=== PATIENT | male | born 1985 | race Caucasian/White ===

== ENCOUNTER 2018-02-23 17:55 | Inpatient (IN) | payer OTHER ==
[~2018-02-23] VITALS: Ht 177.8 cm; Wt 61.2 kg
--- NOTE | 2018-02-23 21:00 | NUR ---
INTAKE ASSESSMENT BP:139/86, HR: 98, RR:16, SpO2:98%, T:98.0 Pt is stable and able to be admitted on the unit. Unit protocols regarding medications and vital signs every 4 hours were explained. Pt verbalized understanding. Will continue admission upon arrival on the unit.
[2018-02-23] MEDS ORDERED: BUPRENORPHINE HCL 2 MG TAB.SUBL SL PRN (21:15)
[2018-02-23] MEDS ORDERED: METHOCARBAMOL 750 MG TABLET PO PRN (21:15)
[2018-02-23] MEDS ORDERED: ONDANSETRON 4 MG/2 ML VIAL IM PRN (21:15)
[2018-02-23] MEDS ORDERED: ACETAMINOPHEN 325 MG TABLET PO PRN (21:15)
[2018-02-23] MEDS ORDERED: MIRALAX 17 GM POWD.PACK PO PRN (21:15)
[2018-02-23] MEDS: MULTIVITAMINS,THERAPEUTIC TABLET PO SCH (21:15)
[2018-02-23] MEDS ORDERED: LOPERAMIDE HCL 2 MG CAPSULE PO PRN ×2 (21:15)
[2018-02-23] MEDS ORDERED: LORAZEPAM 1 MG TABLET PO PRN (21:15)
[2018-02-23] MEDS ORDERED: IBUPROFEN 600 MG TABLET PO PRN (21:15)
[2018-02-23] MEDS ORDERED: MAGNESIUM HYDROXIDE 30 ML LIQUID UDC PO PRN (21:15)
[2018-02-23] MEDS ORDERED: MAG HYDROX/AL HYDROX/SIMETH 30 ML LIQUID UDC PO PRN (21:15)
[2018-02-23] MEDS ORDERED: ONDANSETRON ODT 4 MG TAB.RAPDIS SL PRN (21:15)
[2018-02-23 21:37] LABS: BASOPHILS # (AUTO) 0.1 K/uL (0.0-8.0); BASOPHILS % (AUTO) 0.9 % (0.0-2.0); EOSINOPHILS # (AUTO) 0.1 K/uL (0.0-0.7); EOSINOPHILS % (AUTO) 0.9 % (0.0-7.0); HEMOGLOBIN 13.4 g/dL (12.5-16.3); LYMPHOCYTES # (AUTO) 1.9 K/uL (20.0-40.0); LYMPHOCYTES % (AUTO) 32.3 % (20.5-51.5); MEAN CORPUSCULAR HEMOGLOBIN 31.4 uug (23.8-33.4); MEAN CORPUSCULAR HGB CONC 34 g/dL (32.5-36.3); MEAN CORPUSCULAR VOLUME 91.8 fL (73.0-96.2); MONOCYTES # (AUTO) 0.4 K/uL (2.0-10.0); NEUTROPHILS # (AUTO) 3.5 K/uL (1.8-8.9); NEUTROPHILS % (AUTO) 58.9 % (38.5-71.5); PLATELET COUNT (AUTO) 166 K/uL (152-348); RED BLOOD CELL COUNT(AUTO) 4.25 MIL/uL (4.06-5.63); WHITE BLOOD COUNT (AUTO) 5.9 K/uL (3.6-10.2)
--- NOTE | 2018-02-23 21:45 | NUR ---
ADMISSION NOTE Pt arrived ambulatory accompanied by a EPIC ANALYST at 2106. Pt is a 32 year old male admitted on 02/23/18 for medically supervised withdrawal from Opiates (Heroin). Pt is full code with allergy to shrimp. He denies any PMHx. Pt is alert and oriented x4. Vitals signs are: BP: 139/86, HR: 98, RR:16, SpO2:98%, T:98.0. Speech is clear. Pt is compliant with admission process. He is a poor historian and continuously expresses the desire to sleep. COWS assessment deferred d/t pt currently denies withdrawal symptoms and complains of feeling tired and sleepy from using. He reports his last use of Heroin was on 02/23/18 at 1500. He appears to be fatigued, with dirty fingernails, and poor eye contact. He is noted to be worried and guarded with flat affect. He denies a history of physical, sexual or verbal abuse. He denies having a PCP or psychiatrist. He did not bring home medications and denies taking any medications. He denies any history of seizures, withdrawal induced delirium, withdrawal- induced cardiac complications, overdose and 5150s. Pt reports he started using Heroin 5 years ago. He states this is my third time trying to get sober. I relapsed and Jessica been using for 3 months He reports his most recent sobriety was from May 2017-November 2017. He reports going to treatment 9 months ago but is unable to recall where. When asked why he started using again pt stated "everyday stress." He reports he wants to get sober because, "my said shell leave me if I dont get clean." He states his triggers for relapse are "stress" Pt reports that he has not attempted to get sober on his own. Pt reports that his support system is his . He reports that his plan after detox is to go to treatment. He denies any legal consequences related to his substance use. He reports he is unemployed and lives with his in the [facility]. He describes his current use as: 1. Heroin (smoke) 1 gram daily x3 months. Last use: 1 gram on 02/23/18 at 1500 2. Methamphetamine (smoke) 0.25 gram daily x3 months. Last use: 0.25 gram on 02/23/18 at 1500. Pt describes his typical withdrawal symptoms are: body aches, anxiety, chills, sweats, restlessness and agitation. Upon assessment, heart rate is regular. He denies chest pain or SOB. PERRLA, breathing is even and unlabored, lung sounds clear. Abdomen is soft and non-distended. Bowel sounds present in all quadrants, last BM 02/22/18. Pt reports that BM is regular. Pt's skin is warm, dry and intact. Dr. Rojas aware of pts admission with PRN medications ordered. Pt oriented to room and unit. Safety measures in place. Will continue to monitor.
[2018-02-23 21:49] LABS: ALANINE AMINOTRANSFERASE 28 U/L (16-63); ALKALINE PHOSPHATASE 59 U/L (50-136); ASPARTATE AMINOTRANSFERASE 21 U/L (15-37); BILIRUBIN,TOTAL 0.4 mg/dL (0.2-1.0); CARBON DIOXIDE 28 mmol/L (21-32); CHLORIDE 104 mmol/L (98-107); GLUCOSE 102 mg/dL (74-106); MAGNESIUM 2.2 mg/dL (1.8-2.4); POTASSIUM 3.8 mmol/L (3.5-5.1); TOTAL PROTEIN, SERUM 6.9 g/dL (6.4-8.2); UREA NITROGEN, BLOOD 30 mg/dL (7-18)
[2018-02-23 21:51] LABS: *AMPHETAMINE, URINE POSITIVE (NEGATIVE); *BARBITURATE, URINE NEGATIVE (NEGATIVE); *CANNABINOID, URINE NEGATIVE (NEGATIVE); *COCCAINE, URINE NEGATIVE (NEGATIVE); *OPIATE, URINE POSITIVE (NEGATIVE); *PHENCYCLIDINE SCREEN,URINE NEGATIVE (NEGATIVE)
[2018-02-23 21:53] LABS: ETHANOL < 3 MG/DL (0-0)
[2018-02-23 21:57] LABS: THYROID STIMULATING HORMONE 0.529 mIU/mL (0.358-3.740)
[2018-02-24] VITALS: BP 113/62
--- NOTE | 2018-02-24 04:00 | NUR ---
0400 VITALS REFUSED 0400 vitals refused. Breathing is even and unlabored, safety measures in place. Will continue to monitor.
--- NOTE | 2018-02-24 07:15 | NUR ---
END OF SHIFT Pt is a 32 year old male admitted on 02/23/18 for Opiate withdrawal. Pt remains alert and oriented x4. He denied any withdrawal symptoms. COWS assessment was deferred d/t no complaints of withdrawal symptoms. He is not currently on a taper but has PRN medications available. He did not receive or request PRN medications. He slept a total of 8 hrs, Intake: 1,200mL , Void: x1, BM:0. Breathing is even and unlabored, safety measures in place. Endorsed to AM shift.
--- NOTE | 2018-02-24 07:30 | NUR ---
Start of Shift Notes: Received report from night nurse. Patient is a 32 year old male admitted for opiate withdrawal who was placed on PRNs at this time to manage his withdrawal symptoms. Per night report, patient deferred his last COWS and CIWA due to sleep. Did not receive any PRNs and was able to obtain 8 hours of sleep in total. Patient is seen in his room at this time. He appears disheveled with poor regards to hygiene, dirty fingernails and hands were noted. He is noted with flat affect, easily distracted with poor eye contact noted. He complains of chills, hot flashes, nasal stuffiness, gross tremors, anxiety and agitation, pupils were moderately dilated. Educated patient on his current plan of care for the day and his medication regimen. Encouraged oral fluid intake and encouraged group participation to learn new skills to prevent relapse.
[2018-02-24 08:00] VITALS: BP 129/86
[2018-02-24] MEDS ORDERED: TUBERCULIN,PURIF.PROT.DERIV. 5 TU/0.1 ML TEST ID ONE (09:00)
[2018-02-24] MEDS: MULTIVITAMINS,THERAPEUTIC TABLET PO SCH (09:11)
--- NOTE | 2018-02-24 09:11 | NUR ---
Subutex 4 mg SL given: COWS 12, patient noted with complains of chills, hot flashes, moderate pupil dilation, nasal stuffiness, stomach cramps, gross tremors, bone/joint aches, restlessness, anxiety and agitation. Medicated patient with Subutex 4 mg SL as ordered. Will monitor for effectiveness.
--- NOTE | 2018-02-24 09:41 | NUR ---
Re-assessment: Subutex COWS 10, patient continues to present with s/s of withdrawal m/b restlessness, anxiety, agitation, goosebumps and bone/joint aches. However, he verbalizes that PRN Subutex was effective in mildly reducing his s/s of withdrawal.
[2018-02-24] MEDS ORDERED: 5 DAY TAPER BUPRENORPHINE -SERENITY PROTOCOL SL PRN (11:45)
[2018-02-24 12:00] VITALS: BP 110/68
[2018-02-24] MEDS: BUPRENORPHINE HCL 2 MG TAB.SUBL SL SCH ×3 (12:37→20:25)
[2018-02-24 16:00] VITALS: BP 113/78
--- NOTE | 2018-02-24 19:03 | NUR ---
End of Shift Notes: Patient initiated his 5-day Subutex taper today at 1300. No adverse reactions noted. VS monitored closely. No significant abnormalities noted. Withdrawal symptoms were closely monitored. Initial COWS 12, patient presented with chills, hot flashes, moderately dilated pupils, nasal stuffiness, stomach cramps, gross tremors, anxiety, agitation, fatigue, malaise and generalized discomfort. Medicated patient with Subutex 4 mg SL at 0911 with help. Last COWS 10. Patient verbalizes that Subutex has been effective in reducing his withdrawal symptoms. Appetite fair. Unable to participate in group and activities due to his withdrawal symptoms. All needs met and attended. Will continue to monitor closely.
--- NOTE | 2018-02-24 19:43 | NUR ---
START OF SHIFT NOTE Rcvd report from outgoing nurse. Pt is a 32 y/o male A/O to person, place, time, and purpose. Pt was admitted for medically supervised withdrawal from Heroin. Pt is on day 1 of a 5 day Subutex taper. Pt has been presenting w/ body aches, sweats, chills, hot flashes, blunt affect, depressed and withdrawn mood, and guarded demeanor. Pt also has an unkempt and disheveled appearance. Pt rcvd PRN Subutex and was noted effective by outgoing nurse. Last COWS 10 @ 1600. Call light is within reach. Pt will continue to be monitored and needs met.
[2018-02-24 20:00] VITALS: BP 114/70
[2018-02-24] MEDS: CLONIDINE HCL 0.1 MG TABLET PO PRN (20:25)
[2018-02-24] MEDS: diphenhydrAMINE 50 MG CAPSULE PO PRN (20:25)
--- NOTE | 2018-02-24 20:25 | NUR ---
PRN BENADRYL, CLONIDINE, AND ROBAXIN ADMINISTRATION Benadryl 50mg for sleep, Clonidine 0.1mg for anxiety, and Robaxin 750mg for body aches and generalized pain were given. Will reassess pt in 1 hr.
--- NOTE | 2018-02-24 21:25 | NUR ---
PRN BENADRYL, CLONIDINE, AND ROBAXIN REASSESSMENT Pt is in bed w/ his eyes closed. Pt's respriations are unlabored and even.
--- NOTE | 2018-02-25 | NUR ---
COWS DEFERRED Pt is in bed w/ his eyes closed. Pt's respirations are unlabored and even. Will continue to monitor pt.
--- NOTE | 2018-02-25 04:00 | NUR ---
COWS DEFERRED AND V/S REFUSED Pt is in bed w/ his eyes closed. Pt's respirations are unlabored and even. Pt is unarousable to name. Will continue to be monitored.
[2018-02-25] MEDS: HYDROXYZINE PAMOATE 25 MG CAPSULE PO PRN ×2 (04:58→21:42)
--- NOTE | 2018-02-25 04:58 | NUR ---
PRN VISTARIL ADMINISTRATION Vistaril 50mg given for anxiety. Will reassess pt in 1hr.
--- NOTE | 2018-02-25 05:58 | NUR ---
PRN VISTARIL REASSESSMENT Pt is in bed w/ his eyes closed. Pt's respirations are unlabored and even.
--- NOTE | 2018-02-25 07:21 | NUR ---
END OF SHIFT NOTE Endorsed pt to oncoming nurse. Pt is a 32 y/o male A/O to person, place, time, and purpose. Pt was admitted for medically supervised withdrawal from Heroin. Pt completed day 1 of a 5 day Subutex taper. Pt continued presenting w/ body aches, sweats, chills, hot flashes, blunt affect, depressed and withdrawn mood, and guarded demeanor. Pt also has an unkempt and disheveled appearance. Pt denies any S/I or H/I. PRN Benadryl, Clonidine, Robaxin, and Vistaril were given and noted effective. Pts fluid intake was 1000ml and he slept for 11hrs. Last COWS 10 @ 2000. Call light is within reach
--- NOTE | 2018-02-25 07:25 | NUR ---
Start Of Shift Report received from night time nanny nurse. Pt is a 32 y/o male A/OX4 admitted for medically supervised withdrawal from Heroin. Per night time nanny nurse pt's last COWS was a 10. Pt is continues his 5 day Subutex taper. Upon start of shift pt noted laying in his bed with his eyes open resting, breathing even and unlabored. When greeted pt stated " Im feeling a bit better but Im still having chills and anxiety when I wake up". Pt's room appears messy with his clothes on his bed and table, socks on the floor and food wraps in bed. Pt appears anxious, sweaty and flushed. During assessment, pt is AOx4. Lung sounds clear bilaterally. Radial pulse is regular and non-bounding. Abdomen soft and non-tender. Pt's skin is warm and intact. pt denies any pain at the moment. Encouraged pt to drink plenty of fluids to keep hydrated and help the detox process as well as compensate for all the water lost through sweat. Pt slept a total of 11 hours last night. Pt received PRN Clonidine, Benadryl Robaxin Vistaril last night, per night time nanny medication was effective. Bed in lowest position. Side rails up x2. Call light functioning and within reach. All needs attended and met. Will continue to monitor.
[2018-02-25 08:00] VITALS: BP 124/75
--- NOTE | 2018-02-25 08:00 | NUR ---
COWS 11 Pt has diaphoresis, anxiety restless legs, yawning agitation, Emotional volatility and restlessness. Pt complains of chills runny nose and fatigue. Pt encouraged to drink more fluids to help with detox process. Will continue to monitor, support and encourage according to plan of care.
[2018-02-25 08:06] LABS: HEPATITIS B SURFACE AG Negative (Negative)
[2018-02-25] MEDS: MULTIVITAMINS,THERAPEUTIC TABLET PO SCH (08:52)
[2018-02-25] MEDS: BUPRENORPHINE HCL 2 MG TAB.SUBL SL SCH ×3 (08:53→21:42)
--- NOTE | 2018-02-25 09:47 | NUR ---
Therapist prompted client to attend group therapy sessions daily.
[2018-02-25 12:00] VITALS: BP 120/80
--- NOTE | 2018-02-25 12:00 | NUR ---
COWS 10 Pt has diaphoresis, anxiety restless legs agitation,and restlessness. Pt complains of chills and fatigue. Pt encouraged to drink more fluids to help with detox process. Will continue to monitor, support and encourage according to plan of care.
[2018-02-25 16:00] VITALS: BP 125/85
[2018-02-25] MEDS: CLONIDINE HCL 0.1 MG TABLET PO PRN (16:15)
--- NOTE | 2018-02-25 19:02 | NUR ---
END OF SHIFT Report given to seed cutter nurse, Plan of care followed, Vital signs monitored closely Q4H. Withdrawals symptoms were closely monitored, medications given as schedule. Initial COWS 11. Pt encouraged adequate PO fluid intake as tolerated to compensate for all the water lost in sweat as well as with helping speed up the detox process. Pt presented with diaphoresis, anxiety restless legs, yawning agitation, emotional volatility and restlessness during the day. Pt received all of the scheduled medications. Last COWS 12. Pt reported that Subutex has been working well at controlling the withdrawal symptoms. Pt ate all of the meals. Pt attended all the groups and activities to learn new coping skills to prevent relapse. Pt denies any SI/HI. Pt is very withdrawn and to himself. Educated pt on s/s of withdrawals and health risks and consequences with using. Pt received PRN Clonidine for Anxiety, which was effective. All safety measures in place, bed in lowest locked position, call light within reach. All needs met and attended.
--- NOTE | 2018-02-25 19:15 | NUR ---
Start of Shift Note: Report received from day shift nurse. Patient is a 32 y.o male admitted on 02/23/18 for medically supervised withdrawal from Heroin & Meth. Patient received alert & oriented x3. He is noted with flat affect, anxious and irritable mood. He appear disheveled, unshaved and noted with dirty fingernails. Room has scattered clothes and empty food and bottles all over table. He shows s/s of flushed face, restlessness, enlarge pupils, stuffy nose, yawning, chills, sweating, & fine tremors. He is on a day 2 of his 5-day Subutex taper and tolerating well. Last CIWA is 12. Pt received PRN Clonidine and was effective per report. Continue to closely monitor for for s/s of withdrawal. Encourage pt to increase fluid intake. Safety measures in place. Educated pt current plan of care and medication regimen. Pt verbalized understanding. Will continue to monitor patient.
[2018-02-25 20:00] VITALS: BP 97/63
--- NOTE | 2018-02-25 21:42 | NUR ---
PRN Vistaril Patient complained of anxiety. Pt in bed and appears restless. Non-pharmacological intervention provided but ineffective. PRN Vistaril administered as ordered. Will continue to monitor patient.
--- NOTE | 2018-02-25 22:42 | NUR ---
PRN Reassessment Patient in bed with eyes close. No restlessness noted at this time. Safety measures in place. Will continue to closely monitor patient for any s/s of withdrawal.
--- NOTE | 2018-02-26 | NUR ---
Vitals and COWS deferred Pt asleep in bed with no acute distress noted. Pt refused vitals at this time. Breathing even & unlabored. COWS deferred at this time and will reassess when pt is awake. Safety measures in place. Will continue to monitor patient.
--- NOTE | 2018-02-26 04:00 | NUR ---
Vitals and COWS deferred Pt refused vitals at this time. Pt still asleep in bed with no acute distress noted. COWS deferred at this time and will reassess when pt is awake. Safety measures in place. Will continue to monitor patient.
--- NOTE | 2018-02-26 07:09 | NUR ---
End of Shift Note: Patient still asleep at this time. No acute distress noted during shift. Continues to be on a Subutex taper and tolerating well. Pt complained of anxiety and was given PRN Vistaril and was effective. Pt stayed most of his time in his room. Encourage pt to increase activity and to socialize with peers. Last CIWA is 11. Pt remained compliant with medication and treatment. Vitals noted WNL. He was able to sleep for 7 hours. Fluid intake 1092ml, Voided 1x with no BM noted. Safety measures in place. Will endorse pt to AM nurse.
[2018-02-26 08:00] VITALS: BP 140/83
--- NOTE | 2018-02-26 08:25 | NUR ---
START OF SHIFT: Received Pt A/O X 4.He is disheveled. He presents with guarded affect and anxious mood. He reports restlessness, body aches, anxiety and intermittent sweats. He states he slept alright last night and his appetite is better. COWS 9. Subutex taper in progress to manage s/s of w/d. Encouraged increased fluids to assist in facilitating detox process. Will continue to monitor and manage s/s of w/d.
[2018-02-26] MEDS: MULTIVITAMINS,THERAPEUTIC TABLET PO SCH (08:26)
[2018-02-26] MEDS ORDERED: BUPRENORPHINE HCL 2 MG TAB.SUBL SL SCH (09:00)
[2018-02-26 12:00] VITALS: BP 113/77
--- NOTE | 2018-02-26 12:02 | NUR ---
Therapist prompted client to attend group therapy sessions.
--- NOTE | 2018-02-26 12:05 | NUR ---
COWS=8 he reports body aches,anxiety,restlessness and intermittent sweats.
[2018-02-26] MEDS: BUPRENORPHINE HCL 2 MG TAB.SUBL SL SCH ×2 (14:43→21:13)
[2018-02-26 16:00] VITALS: BP 108/72
--- NOTE | 2018-02-26 18:41 | NUR ---
END OF SHIFT: Pt continues on Subutex taper to manage s/s of w/d which include anxiety,body aches, intermittent sweats and restlessness. Last COWS 7.He states the detox meds are effective. He was compliant with increased fluids and group attendance. Will pass shift report to oncoming night nurse.
--- NOTE | 2018-02-26 19:30 | NUR ---
START OF SHIFT Received patient awake, alert, and oriented lying in bed watching TV. Patient is a 32 year old male admitted for medically supervised detox from opiates with no secondary diagnoses. Per endorsement patient is on the 2nd day of a 5 day Subutex taper started on 02/24/18. Patient was noted to be cooperative and compliant with treatment plan throughout the previous shift and no negative symptoms were reported by the patient and no PRNs were given. Upon assessment, patient reports having generalized body aches all throughout his body at a pain level of 3 out of 10 and declines the use of PRN meds. Last COWS score is 7. HOB and bilateral side rails raised for safety. All safety measures are in place. Bed is in a low position with wheels locked. Call light is functional and within reach. Will continue to monitor.
[2018-02-26 20:00] VITALS: BP 121/70
--- NOTE | 2018-02-27 | NUR ---
VITAL SIGNS REFUSED Patient noted lying in bed with eyes closed and even, unlabored respirations. Vital signs refused. HOB flat and bilateral side rails raised. Call light is functional and within reach. All safety measures in place. Will continue to monitor.
--- NOTE | 2018-02-27 07:30 | NUR ---
START OF SHIFT Pt 32 y/o male admitted for opiate withdrawal. Pt received in room on bed with eyes closed resting but arousable to name. Pt alert and oriented to name, place, and time. Perrla. Skin warm and moist to touch. Respirations even and unlabored. Appears disheveled. Clothes scattered throughout the room. Encouraged to maintain hygiene. Anxious and restless. Pressured speech. Complaints of generalized body aches and discomfort. Intermittent perspirations/ chills. It was reported that pt slept or 6 hours last night. Pt is on a 5 day subutex taper and is on day 4. Bed on lowest position with side rails x2 up for safety. Call light within reach.
--- NOTE | 2018-02-27 07:30 | NUR ---
END OF SHIFT Patient is noted lying in bed with eyes closed and even, unlabored respirations. Patient is a 32 year old male admitted for medically supervised detox from opiates with no secondary diagnoses. During the shift, the patient did not report any negative symptoms and no PRNs were given. Patient remained in his room for most of the shift and slept. Patient was encouraged to increase fluid intake and activity levels. Last COWS score is 7. He slept for about 6 hours during the night. HOB flat and bilateral side rails raised. All safety measures in place. Bed is in a low position with wheels locked. Call light is functional and within reach. Endorsed to oncoming AM nurse.
[2018-02-27 08:00] VITALS: BP 115/75
[2018-02-27] MEDS: BUPRENORPHINE HCL 2 MG TAB.SUBL SL SCH ×3 (09:05→20:55)
[2018-02-27] MEDS: MULTIVITAMINS,THERAPEUTIC TABLET PO SCH (09:05)
[2018-02-27 12:00] VITALS: BP 124/78
[2018-02-27 16:00] VITALS: BP 130/80
--- NOTE | 2018-02-27 19:23 | NUR ---
END OF SHIFT Pt 32 y/o male admitted for opiate withdrawal. Pt alert and oriented to name, place, and time. Perrla. Skin warm and moist to touch. Respirations even and unlabored. Appears disheveled. Empty drink bottles scattered throughout the room. Encouraged to maintain hygiene. Anxious and restless. Pressured speech. Fidgety. Irritable. Complaints of generalized body aches. Complaints of generalized discomfort. Pt selective with group activity today. Pt is on a 5 day subutex taper and is on day 4. Bed on lowest position with side rails x2 up for safety. Call light within reach.
--- NOTE | 2018-02-27 19:30 | NUR ---
START OF SHIFT Received patient awake, alert, and oriented x4 lying in bed watching television. Patient is a 32 year old male admitted for medically supervised detox from opiates with no secondary diagnoses. Per endorsement, patient made no requests during the day and was cooperative and compliant with all treatments and therapies. No PRNs were given. Upon assessment, patient requested to have a sleep aid with his night meds. No other issues noted or reported. Last COWS score is 10. HOB is flat and bilateral side rails raised. Bed is in a low position with wheels locked. Call light is functional and within reach. All safety measures in place. Will continue to monitor.
[2018-02-27 20:00] VITALS: BP 107/73
[2018-02-27] MEDS: diphenhydrAMINE 50 MG CAPSULE PO PRN (20:55)
--- NOTE | 2018-02-27 20:55 | NUR ---
PRN BENADRYL ADMINISTRATION Patient reported having difficulty sleeping and requested a sleep aid. PRN Benadryl 50 mg given per MD orders and patient request. Will continue to monitor and reassess for effectiveness.
--- NOTE | 2018-02-27 21:55 | NUR ---
PRN BENADRYL REASSESSMENT Patient is noted lying in bed with eyes closed and even unlabored respirations. PRN Benadryl noted to be effective. HOB flat and bilateral side rails raised for safety. Will continue to monitor.
--- NOTE | 2018-02-28 | NUR ---
VITAL SIGNS REFUSED Patient is noted lying in bed with eyes closed and even, unlabored respirations. Vital signs refused. HOB and bilateral side rails raised. Will continue to monitor.
--- NOTE | 2018-02-28 07:27 | NUR ---
END OF SHIFT Patient is noted lying in bed with eyes closed and even, unlabored respirations. Patient is a 32 year old male admitted for medically supervised detox from opiates with no secondary diagnoses. During the shift, the patient did not report any negative symptoms besides having difficulty sleeping. PRN Benadryl given as a sleep aid and was effective. Patient expressed satisfaction with his treatment course and shows hope for change. Patient requests to have a phone call to his . Last COWS score is 8 taken at 2000. Patient slept for about 8 hours during the night. HOB is flat and bilateral side rails raised. All safety measures in place. Call light is functional and within reach. Endorsed to oncoming AM nurse.
--- NOTE | 2018-02-28 07:30 | NUR ---
START OF SHIFT Pt 32 y/o male admitted for opiate withdrawal. Pt received in room on bed with eyes closed resting, but arousable to name. Pt alert and oriented to name, place, and time. Perrla. Skin warm and moist to touch. Respirations even and unlabored. Appears disheveled. Clothes scattered throughout the room. Encouraged to maintain hygiene. Anxious and restless. Pressured speech. Complaints of generalized discomfort and body aches. Intermittent perspiration/ chills. It was reported that pt slept for 8 hours last night. Pt is on a 5 day subutex taper and is on day 5. Bed on lowest position with side rails x2 up for safety. Call light within reach.
[2018-02-28 08:00] VITALS: BP 119/78
[2018-02-28] MEDS: MULTIVITAMINS,THERAPEUTIC TABLET PO SCH (08:42)
[2018-02-28] MEDS ORDERED: BUPRENORPHINE HCL 2 MG TAB.SUBL SL SCH (09:00)
[2018-02-28 12:00] VITALS: BP 130/78
[2018-02-28 16:00] VITALS: BP 114/80
--- NOTE | 2018-02-28 18:50 | NUR ---
END OF SHIFT Pt 32 y/o male admitted for opiate withdrawal. Pt alert and oriented to name, place, and time. Perrla. Skin warm and moist to touch. Respirations even and unlabored. Appears disheveled. Food wrappings scattered throughout the room. Encouraged to maintain hygiene. Last cows=7 @1600. Anxious and restless. Pressured speech. Intermittent perspiration. Complaints of generalized discomfort. Pt is on a 5 day subutex taper and is on day 5. Bed on lowest position with side rails x2 up for safety. Call light within reach.
--- NOTE | 2018-02-28 19:25 | NUR ---
START OF SHIFT Patient is a 32-year-old male admitted on 02/23/18 for opiate withdrawal. Patient has completed a 5-day Subutex taper, tolerated well. Patient was originally scheduled for discharge tomorrow, but without a discharge location available, discharge has been postponed to Friday, . Patient received no PRN medications today; last COWS was 7 per endorsement. Upon assessment, patient is observed in bed awake. Patient reports that he is agitated and upset that he has not been able to make a phone call all day when he has "asked my nurse many times today." Patient reports anxiety and restlessness. Patient is on fall precautions with not previous seizure history. Safety measures in place, side rails up x2, bed locked in low position, call light within reach. Will continue to monitor.
[2018-02-28 20:00] VITALS: BP 113/75
[2018-02-28] MEDS: diphenhydrAMINE 50 MG CAPSULE PO PRN (21:06)
[2018-02-28] MEDS: HYDROXYZINE PAMOATE 25 MG CAPSULE PO PRN (21:09)
--- NOTE | 2018-02-28 21:09 | NUR ---
PRN BENADRYL & VISTARIL Patient reports difficulty sleeping and increased anxiety related to calling his but not being able to speak with her. PRN Benadryl and PRN Vistaril given PO. Safety measures in place, side rails up x2, bed locked in low position, call light within reach. Will monitor for effectiveness.
--- NOTE | 2018-02-28 22:09 | NUR ---
PRN BENADRYL & VISTARIL REASSESSMENT Patient reports that both PRN Benadryl and Vistaril were not effective. He is still unable to sleep and continues to feel anxious, even after making another authorized phone call and finally getting a hold of his . PRN medications not effective. SN encouraged patient to use relaxation techniques. Safety measures in place, side rails up x2, bed locked in low position, call light within reach. Will continue to monitor.
--- NOTE | 2018-03-01 | NUR ---
VITALS REFUSED Patient is attempting to sleep and does not wish to be disturbed, having difficulty falling asleep. Vitals refused at this time. Respirations even and unlabored, 16/min. Safety measures in place, side rails up x2, bed locked in low position, call light within reach. Will continue to monitor.
[2018-03-01 04:00] VITALS: BP 129/78
[2018-03-01] MEDS: CLONIDINE HCL 0.1 MG TABLET PO PRN ×2 (05:45→14:54)
--- NOTE | 2018-03-01 05:45 | NUR ---
PRN CLONIDINE Patient continues to feel anxious, restless, and unable to sleep. PRN Clonidine 0.1mg given PO for anxiety and agitation. BP is 110/74, HR 94, respirations 16/min. Safety measures in place, side rails up x2, bed locked in low position, call light within reach. Patient is in bed with lights off attempting to sleep again. Will continue to monitor.
--- NOTE | 2018-03-01 06:45 | NUR ---
PRN CLONIDINE REASSESSMENT Patient is observed sleeping in bed with eyes closed, respirations even and unlabored, 16/min. Unable to reassess effectiveness of PRN Clonidine at this time. Safety measures in place, side rails up x2, bed locked in low position, call light within reach. Will continue to monitor.
--- NOTE | 2018-03-01 07:27 | NUR ---
END OF SHIFT Patient is a 32-year-old male admitted on 02/23/18 for opiate withdrawal. Patient has completed a 5-day Subutex taper, tolerated well. Patient was originally scheduled for discharge today, but currently pending discharge location so discharge is postponed to tomorrow, . Patient received PRN Benadryl and Vistaril, which were both ineffective. Patient requested "something for anxiety" this morning at 0545. Patient received PRN Clonidine 0.1mg PO; unable to assess due to patient sleeping. Patient slept for approx. 5 hours, total intake of 725mL, void x2, stool x0. Last COWS was 7. Patient is on fall precautions with not previous seizure history. Safety measures in place, side rails up x2, bed locked in low position, call light within reach. Will endorse to day shift.
--- NOTE | 2018-03-01 07:45 | NUR ---
START OF SHIFT Endorse rcvd from ongoing nurse, client is in room, a/o x 4, he appears disheveled, malnourished, dark [place] [employer] [place] under his eyes, dirt under fingernails. Client reports anxiety, stomach cramps, poor appetite, and fatigue. Client completed 5 day Subutex taper. Last COWS 7 @ 1600. Client is schedule for D/C tomorrow am for continuity of treatment [facility]. Client has has been sleeping for the past 5hrs. [place] precautions. Side rails x 2 up. Call light within reach. Will continue to monitor.
[2018-03-01 08:00] VITALS: BP 97/69
[2018-03-01] MEDS: MULTIVITAMINS,THERAPEUTIC TABLET PO SCH (09:00)
--- NOTE | 2018-03-01 10:00 | NUR ---
COWS 7 Client continues to presents with anxiety, tremors felt, irritability, stomach cramps, poor appetite, and fatigue. Non-pharmacologic measures rendered, will continue to monitor. Call light within reach.
[2018-03-01] MEDS ORDERED: TRAZODONE 50 MG TABLET PO PRN (10:45)
--- NOTE | 2018-03-01 12:00 | NUR ---
COWS 7 Client reports anxiety, chills, depression, difficulty concentrating, difficulty thinking clearly, emotional volatility, fatigue, and sweating. Non-pharmacologic measures rendered. Will continue to monitor. Call light within reach.
[2018-03-01 12:55] VITALS: BP 105/63
[2018-03-01] MEDS: HYDROXYZINE PAMOATE 25 MG CAPSULE PO PRN ×2 (14:53→20:53)
--- NOTE | 2018-03-01 14:54 | NUR ---
PRN medication; Patient is complaining of restlessness, anxiety, diaphoresis and agitation. Patient's current BP is 128/92, HR of 101. PRN Vistaril 50 mg PO given for anxiety and PRN Clonidine 0.1 mg PO given for agitation and anxiety. Will continue to monitor patient for effectiveness of medication. Primary nurse notified.
--- NOTE | 2018-03-01 16:00 | NUR ---
COWS 13 Client continues to presents with anxiety, stomach cramps, poor appetite, and fatigue. Non-pharmacologic measures rendered, will continue to monitor. Call light within Addendum: 03/01/18 at 1938 by LIDIA TAM RN COWS 7
[2018-03-01 16:55] VITALS: BP 104/70
--- NOTE | 2018-03-01 19:30 | NUR ---
START OF SHIFT Pt is a 32 y/o male admitted on 02/23/17 for opiate withdrawal. Pt finished a 5 day Subutex taper and is scheduled to be d/c tomorrow to [facility]. Last COWS 7 and PRN Vistaril and Clonidine administered during day shift. Upon assessment pt presents with anxiety, agitation, flat affect, lethargy, chills, sweats, poor eye contact, disheveled appearance, unkempt room and is withdrawn in room. Pts chief complaint is anxiety. Safety measures in place. Call light within reach. Will continue to monitor.
--- NOTE | 2018-03-01 19:38 | NUR ---
END OF SHIFT Endorse client to incoming nurse, client is in room, a/o x 4, client continues to presents with anxiety, stomach cramps, poor appetite, and fatigue. Client completed 5 day Subutex taper. Last COWS 7 @ 1600. PRN medications administered and noted per protocol. Client is schedule for D/C tomorrow am for continuity of treatment [facility]. Client is not compliant with group therapy. Consumes 50% of meals. Adequate PO fluid intake 1092mL, void x 3, stool x 1. Call light within reach.
[2018-03-01 20:00] VITALS: BP 95/54
--- NOTE | 2018-03-01 20:53 | NUR ---
PRN VISTARIL AND TRAZODONE ADMINISTRATION Pt presents with anxiety and requests sleep aid. Safety measures in place. Call light within reach. Will continue to monitor.
--- NOTE | 2018-03-01 21:53 | NUR ---
PRN VISTARIL AND TRAZODONE REASSESSMENT Pt laying in bed with eyes closed, medications noted effective. Safety measures in place. Call light within reach. Will continue to monitor.
--- NOTE | 2018-03-02 | NUR ---
VITALS REFUSED Pt refused vitals if sleeping for remainder of shift. Pt noted to be laying in bed with eyes closed, respirations even and unlabored. Safety measures in place. Call light within reach. Will continue to monitor.
[2018-03-02] MEDS: HYDROXYZINE PAMOATE 25 MG CAPSULE PO PRN (03:31)
[2018-03-02] MEDS: CLONIDINE HCL 0.1 MG TABLET PO PRN (03:38)
--- NOTE | 2018-03-02 03:38 | NUR ---
PRN CLONIDINE AND VISTARIL ADMINISTRATION Pt reports persistent anxiety and has not been able to fully sleep throughout the night. Pt also presents with agitation, intermittent chills and sweats. Safety measures in place. Call light within reach. Will continue to monitor.
[2018-03-02 04:00] VITALS: BP 106/71
--- NOTE | 2018-03-02 04:38 | NUR ---
PRN CLONIDINE AND VISTARIL REASSESSMENT Pt laying in bed with eyes closed, medications noted effective. Safety measures in place. Call light within reach. Will continue to monitor.
--- NOTE | 2018-03-02 07:02 | NUR ---
END OF SHIFT Pt is a 32 y/o male admitted on 02/23/17 for opiate withdrawal. Pt finished a 5 day Subutex taper and is scheduled to be d/c today to [facility]. Pt presented with anxiety, agitation, increased HR, flat affect, lethargy, chills, sweats, poor eye contact, disheveled appearance, unkempt room and was withdrawn in room. Pt reported not being able to sleep throughout the night r/t anxiety. PRN Clonidine, Vistaril x 2, and Trazodone administered during shift. Pt reports that if he can't get his anxiety under control he feels he is at risk for relapse. Pt stated he does not use non-pharmacological ways to manage anxiety and is only used to taking medications. Stress/anxiety management techniques encouraged. Pt slept 6 hours. Intake 1000 ml, void x 3, stool x 0. Safety measures in place. Call light within reach. Endorsed to day shift nurse.
--- NOTE | 2018-03-02 07:30 | NUR ---
start of shift note: received pt from warehouse supervisor 3rd shift nurse, pt is in stable condition so s/s of pain or discomfort. pt is admitted to [facility] for opiate withdrawal/dependence. pt's last cows 7 and slept for 6 hrs. pt is set to discharge today. will assist pt in discharging and continue to monitor pt for any changes
[2018-03-02] MEDS: MULTIVITAMINS,THERAPEUTIC TABLET PO SCH (09:25)
--- NOTE | 2018-03-02 10:12 | NUR ---
discharge note: pt left the unit in stable condition no s/s of pain or discomfort, pt was agitated and anxious about discharging and smoke breaks. pt teaching administered and pt verbalized understanding pt will be transferred to [facility] via our transportation all personal belongings will be returned to client.
== END 2018-03-02 10:12 | DRG 895 ==
LOC: SRC 20:07
PROVIDERS: ADMIT Family Medicine Addiction Medicine; ATTEND Family Medicine Addiction Medicine
PROC: HZ2ZZZZ Detoxification Services for Substance Abuse Treatment (ICD-10-PCS; principal; 2018-02-23)
PROC: HZ31ZZZ Individual Counseling for Substance Abuse Treatment, Behavioral (ICD-10-PCS; 2018-02-25)
PROC: HZ41ZZZ Group Counseling for Substance Abuse Treatment, Behavioral (ICD-10-PCS; 2018-02-26)
DX: F11.23 Opioid dependence with withdrawal (principal); F15.23 Other stimulant dependence with withdrawal; F41.9 Anxiety disorder, unspecified; E86.0 Dehydration; F17.210 Nicotine dependence, cigarettes, uncomplicated
CPT/HCPCS: 36415; 70030-TC; 80307; 80324; 80361; 83735; 84443; 85025; 86580; 86592; 86705; 86803; 87340; 87806; A4663; G0480; Q0162; Q0163